=== PATIENT | female | born 1975 | race Caucasian/White ===

== ENCOUNTER 2021-06-07 17:09 | Observation (INO) ==
[2021-06-07 17:16] VITALS: O2SAT 99
[2021-06-07 17:45] LABS: Basophils # 0.1 K/mcL (0.0-0.2); Basophils % 0.8 %; Eosinophils # 0.1 K/mcL (0.0-0.6); Eosinophils % 1.1 %; Hematocrit 38.7 % (35.3-44.9); Hemoglobin 13.9 g/dL (11.5-15.4); Immature Granulocytes % 0.2 % (0-4); Lymphocytes # 2.9 K/mcL (0.6-4.6); Lymphocytes % 34.2 %; Mean Corpuscular HGB Conc 35.9 g/dL (31.6-35.5); Mean Corpuscular Hemoglobin 35.6 pg (28.0-33.3); Mean Corpuscular Volume 99.2 fL (83.0-100.0); Mean Platelet Volume 9.2 fL (9.4-12.4); Monocytes # 0.5 K/mcL (0.0-1.3); Monocytes % 6.3 %; Neutrophils # 4.9 K/mcL (1.6-8.9); Platelet Count 411 K/mcL (140-400); Red Cell Distribution Width 13.8 % (11.5-14.5); Segmented Neutrophils % 57.4 %; White Blood Count 8.5 K/mcL (4.3-11.1)
[2021-06-07 18:02] LABS: Acetaminophen < 10 mcg/mL (10-20); BUN/Creatinine Ratio 7 (6-26); Blood Urea Nitrogen 5 mg/dL (6-20); Carbon Dioxide 24 mEq/L (23-29); Chloride 103 mEq/L (98-107); Chol/HDL Ratio 5.6 (0-4.9); Cholesterol 202 mg/dL (< 200); Ethanol < 10 mg/dL (Less than 10); Glucose 118 mg/dL (70-105); HDL Cholesterol 36 mg/dL (40-59); LDL Cholesterol,Calculated 150 mg/dL (< 100); Osmolality,Calculated 278 (280-300); Potassium 3.5 mEq/L (3.5-5.1); Salicylate < 2.5 mg/dL (15.0-30.0); Sodium 135 mEq/L (136-145); Triglycerides 81 mg/dL (< 150); eGFR For African Americans > 60 (> 60); eGFR For Non-African Americans > 60 (> 60)
[2021-06-07 18:33] LABS: Bilirubin,Urine Negative (Negative); Blood,Urine Trace-intact (Negative); Clarity,Urine Clear (Clear); Color,Urine Yellow (Yellow); Glucose,Urine (UA) Normal (Normal); Ketones,Urine Negative (Negative); Leukocyte Esterase,Urine Negative (Negative); Nitrite,Urine Negative (Negative); PH,Urine 6.5 pH Units (5.0-8.0); Protein,Urine Negative (Neg-Trace); Specific Gravity,Urine 1.015 (1.010-1.025); Urobilinogen,Urine Normal (Normal)
[2021-06-07 18:45] LABS: Amphetamine Screen,Urine Positive ng/mL (Cutoff=1000); Barbiturate Screen,Urine Negative ng/mL (Cutoff=200); Benzodiazepines Screen,Urine Negative ng/mL (Cutoff=200); Cannabinoid Screen,Urine Positive ng/mL (Cutoff = 50); Cocaine Screen,Urine Negative ng/mL (Cutoff= 300); Opiate Screen,Urine Negative ng/mL (Cutoff=300); Phencyclidine Screen,Urine Negative ng/mL (Cutoff=25)
[2021-06-07 18:49] LABS: RBC,Urine 0-3 per hpf (0-3); Squamous Epithelial Cell,Urine Few per hpf (None-Few); WBC,Urine 0-3 per hpf (0-3)
[2021-06-07 20:17] LABS: Troponin I < 0.03 ng/mL (< 0.04)
[2021-06-07 22:40] LABS: Influenza A PCR Negative (Negative); Influenza B PCR Negative (Negative); Resp. Syncytial Virus PCR Negative (Negative)
[2021-06-07 22:44] LABS: SARS-CoV-2 by PCR (In House) Negative (Negative)
[2021-06-07] MEDS ORDERED: Acetaminophen 325 MG TABLET PO PRN (22:58)
[2021-06-07] MEDS ORDERED: traZODone 50 MG TABLET PO PRN (22:58)
[2021-06-07] MEDS ORDERED: *HR* LORazepam 2 MG/ML VIAL IM PRN (22:58)
[2021-06-07] MEDS ORDERED: Haloperidol Lactate 5 MG/ML VIAL IM PRN (22:58)
[2021-06-07] MEDS ORDERED: hydrOXYzine pamoate 25 MG CAPSULE PO PRN (22:58)
[2021-06-07] MEDS ORDERED: haloperidoL 5 MG TABLET PO PRN (22:58)
[2021-06-07] MEDS ORDERED: *HR* LORazepam 1 MG TABLET PO PRN (22:58)
[2021-06-08] MEDS ORDERED: Nicotine 21 MG PATCH.TD24 TD SCH (09:00)
[2021-06-08 09:39] VITALS: BP 124/82; PULSE 76; TEMP 97.2
== END 2021-06-08 14:35 | disposition home or self-care (01) ==
LOC: EMEROOARM 17:09 → 1ANU 17:09
PROVIDERS: ADMIT Psychiatry & Neurology Psychiatry; ATTEND Psychiatry & Neurology Psychiatry